=== PATIENT | male | born 1980 | race Hispanic/Latino ===

== ENCOUNTER 2024-06-30 06:50 | Inpatient (IN) | payer SELFPAY ==
[2024-06-30] MEDS ORDERED: ONDANSETRON 4 MG/2 ML VIAL ONE ×2 (07:38→09:45)
[2024-06-30] MEDS ORDERED: NA CHLORIDE 0.9% 1,000 ML ONE (07:38)
[2024-06-30] MEDS ORDERED: MORPHINE 4 MG/ML SYR ONE ×2 (07:38→09:36)
[2024-06-30 07:41] LABS: Absolute Lymphocytes (CBC) 1.3 K/uL (0.7-4.9); Absolute Monocytes 1.3 K/uL (0.1-1.3); Absolute Neutrophil 11.7 K/uL (1.8-8.0); Basophils % 0.2 % (0-1.3); Hematocrit 42.6 % (39.6-49.0); Hemoglobin 14.7 g/dL (13.6-17.9); Lymphocytes % 9.1 % (15.3-44.8); MCH 30.2 pg (27.0-35.0); MCHC 34.5 g/dL (32.0-36.0); MCV 87.6 fL (80-100); MPV 8.9 fL (7.6-11.3); Monocytes % 9.4 % (3.3-12.3); Neutrophils % 81.3 % (41.7-73.7); Platelets 176 thou/uL (152-406); RBC Red Blood Cell Count 4.86 M/uL (4.33-5.43); Red Cell Distribution Width 13.5 % (12.1-15.2)
[2024-06-30 08:00] LABS: Albumin 3.6 g/dL (3.4-5.0); Albumin/Globulin Ratio 0.9 (1.1-1.8); Anion Gap 7.6 mEq/L (5.0-15.0); Globulin 4.2 g/dL (2.3-3.5); Potassium 3.6 mEq/L (3.5-5.1); Protein, Total 7.8 g/dL (6.4-8.2)
--- NOTE | 2024-06-30 08:27 | RAD REPORT ---
EXAMINATION: CT ABDOMEN AND PELVIS WITH CONTRAST CLINICAL INDICATION: Abdominal pain TECHNIQUE: CT abdomen and pelvis was performed, after the administration of 100 cc Isovue-300.. Sagit naresh and coronal reconstructions were obtained. One or more of the following dose reduction techniques were used: Automated exposure control, adjustment of the mA and/or kV according to patien t size, and/or iterative reconstruction. Unless otherwise specified, incidental findings do not require dedicated imaging follow-up. [id number]. Oral contrast was not given which limits evaluation of b owel and appendix. COMPARISON: none FINDINGS: Mild fatty liver. Spleen, pancreas, adrenals and right kidney unremarkable. Small left renal calculi. No hydronephrosis. No evidence of diverticulitis.: The appendix is dilated and fluid-filled. It contains an air bubble. It extends medially and inferior ly from the cecum. Moderate stranding is present adjacent to the appendix with small amount of ill-defined fluid. IMPRESSION: Appendicitis
[2024-06-30] MEDS ORDERED: NA CHLORIDE 0.9% 100 ML ONE (08:54)
[2024-06-30] MEDS ORDERED: PIPERACIL/TAZO 3.375 GM VIAL IV ONE (08:55)
[2024-06-30] MEDS: PIPER TAZO 3.375 GM in NA CHLORIDE 0.9% 100 ML IV SCH ×2 (09:00→15:47)
--- NOTE | 2024-06-30 09:01 | ER ---
Nurse's Notes [facility] Name: Jayy Adorno Age: 43 yrs Sex: Male : 1980 Arrival Date: 06/30/2024 Time: 06:50 Bed 13 Private MD: Diagnosis: Acute appendicitis with localized peritonitis Presentation: 06/30 07:10 Chief complaint: Patient states: Constipation, abdominal pain, and nausea x4 day. Pt rs5 reports trying OTC laxatives but they haven't helped. Coronavirus screen: At this time, the client does not indicate any symptoms associated with coronavirus-19. Ebola Screen: No symptoms or risks identified at this time. Initial Sepsis Screen: Does the patient meet any 2 criteria? No. Patient's initial sepsis screen is negative. Does the patient have a suspected source of infection? No. Patient's initial sepsis screen is negative. Risk Assessment: Do you want to hurt yourself or someone else? Patient reports no desire to harm self or others. Onset of symptoms was June 26, 2024. 07:10 Method Of Arrival: Ambulatory rs5 07:10 Acuity: JENNA 3 rs5 Triage Assessment: 07:12 General: Appears in no apparent distress. uncomfortable, Behavior is calm, cooperative. rs5 Pain: Complains of pain in abdomen Pain currently is 8 out of 10 on a pain scale. Quality of pain is described as aching, Is continuous. GI: Reports constipation, nausea. Historical: - Allergies: 07:12 No Known Allergies; rs5 - PMHx: 07:12 Hypercholesterolemia; rs5 - PSHx: 07:12 None; rs5 - Immunization history:: Adult Immunizations up to date. - Infectious Disease History:: Denies. - Social history:: Smoking status: Patient denies any tobacco usage or history of. - Family history:: not pertinent. - Hospitalizations: : No recent hospitalization is reported. Screenin:02 [facility] ED Fall Risk Assessment (Adult) History of falling in the last 3 months, rs5 including since admission No falls in past 3 months (0 pts) Confusion or Disorientation No (0 pts) Intoxicated or Sedated No (0 pts) Impaired Gait No (0 pts) Mobility Assist Device Used No (0 pt) Altered Elimination No (0 pt) Score/Fall Risk Level 0 - 2 = Low Risk Oriented to surroundings, Maintained a safe environment. Abuse screen: Denies threats or abuse. Nutritional screening: No deficits noted. Tuberculosis screening: No symptoms or risk factors identified. Assessment: 07:13 General: Appears in no apparent distress. uncomfortable, Behavior is calm, cooperative. rs5 Pain: Complains of pain in abdomen Pain currently is 8 out of 10 on a pain scale. Quality of pain is described as aching, Is continuous. Neuro: Level of Consciousness is awake, alert, obeys commands, Oriented to person, place, time, situation. Cardiovascular: Patient's skin is warm and dry. Respiratory: Airway is patent Respiratory effort is even, unlabored, Respiratory pattern is regular, symmetrical. GI: Abdomen is round non-distended, Bowel sounds Abd is soft and non tender X 4 quads. Reports constipation, nausea. : No signs and/or symptoms were reported regarding the genitourinary system. EENT: No signs and/or symptoms were reported regarding the EENT system. Derm: Skin is intact, Skin is dry, Skin is normal, Skin temperature is warm. Musculoskeletal: Range of motion: intact in all extremities. 08:17 Reassessment: Patient and/or family updated on plan of care and expected duration. Pain rs5 level reassessed. Patient is alert, oriented x 3, equal unlabored respirations, skin warm/dry/pink. 09:20 Pain: Complains of pain in abdomen Pain currently is 9 out of 10 on a pain scale. rs5 Quality of pain is described as aching, Is continuous. 09:20 Reassessment: Patient and/or family updated on plan of care and expected duration. Pain rs5 level reassessed. Patient is alert, oriented x 3, equal unlabored respirations, skin warm/dry/pink. provider notified pt is experiencing pain . 10:10 Reassessment: Patient and/or family updated on plan of care and expected duration. Pain rs5 level reassessed. Patient is alert, oriented x 3, equal unlabored respirations, skin warm/dry/pink. Patient states feeling better. Vital Signs: 07:10 BP 130 / 90; Pulse 71; Resp 17; Pulse Ox 98% on R/A; rs5 08:01 BP 125 / 88; Pulse 74; Resp 17; Pulse Ox 99% on R/A; rs5 10:10 BP 127 / 84; Pulse 73; Resp 17; Pulse Ox 98% on R/A; rs5 ED Course: 06:56 Patient arrived in ED. gm2 07:01 Johnathan León MD is Attending Physician. rn 07:02 Patient has correct armband on for positive identification. Placed in gown. Bed in low rs5 position. Call light in reach. Side rails up X2. 07:02 No provider procedures requiring assistance completed. rs5 07:06 Arm band placed on Patient placed in an exam room, on a stretcher. ll1 07:10 Ariel Crooks, RN is Primary Nurse. rs5 07:12 Triage completed. rs5 07:38 Inserted saline lock: 20 gauge in right antecubital area, using aseptic technique. rs5 Blood collected. Flushed with 10 mL NS. 08:15 CT Abd/Pelvis - IV Contrast Only In Process Unspecified. EDMS 09:00 Saturnino Tovar MD is Hospitalizing Provider. rn 10:12 Patient admitted, IV remains in place. rs5 10:23 Provided Education on: need for admit. rs5 Administered Medications: 07:44 Drug: NS 0.9% IV 1000 ml IV at 1 bolus Per protocol; 1000 mL bolus Route: IV; Rate: 1 rs5 bolus; Site: right antecubital; 08:50 Follow up: Response: No adverse reaction; IV Status: Completed infusion; IV Intake: rs5 1000ml 07:44 Drug: Ondansetron IVP 4 mg IVP once; over 2 minutes Route: IVP; Site: right antecubital;rs5 08:00 Follow up: Response: No adverse reaction; Nausea is decreased rs5 07:44 Drug: morphine IVP or IV 4 mg IVP once over 4 mins Route: IVP; Infused Over: 4 mins; rs5 Site: right antecubital; 08:01 Follow up: Response: No adverse reaction; Pain is decreased rs5 09:06 Drug: Piperacillin-Tazobactam IVPB 3.375 grams IVPB once over 60 mins; (mix in NS 100 rs5 mL) Route: IVPB; Infused Over: 60 mins; Site: right antecubital; 09:22 Follow up: Response: No adverse reaction rs5 10:07 Follow up: Response: No adverse reaction; IV Status: Completed infusion rs5 09:35 Drug: morphine IVP or IV 4 mg IVP once over 4 mins Route: IVP; Infused Over: 4 mins; rs5 Site: right antecubital; 10:00 Follow up: Response: No adverse reaction; Pain is decreased rs5 Medication: 07:13 VIS not applicable for this client. rs5 Intake: 08:50 IV: 1000ml; Total: 1000ml. rs5 Outcome: 09:00 Decision to Hospitalize by Provider. rn 10:12 Admitted to OR accompanied by nurse, via stretcher, with chart, rs5 10:12 Condition: stable rs5 10:12 Instructed on the need for admit, Demonstrated understanding of instructions, 10:13 Patient left the ED. rs5 Signatures: Dispatcher [employer] EDMS Johnathan León MD MD rn Lewis, Lynsay, RN RN ll1 Ariel Crooks RN RN rs5 Debra Uriarte 2
--- NOTE | 2024-06-30 09:01 | EDPHYS ---
Physician Documentation [facility] Name: Jayy Adorno Age: 43 yrs Sex: Male : 1980 Arrival Date: 06/30/2024 Time: 06:50 Bed 13 Private MD: ED Physician Johnathan León HPI: 06/30 08:52 This 43 yrs old Male presents to ER via Ambulatory with complaints of rn Constipation, abd pain. 08:58 The patient presents with abdominal pain in the lower abdomen. Onset: The rn symptoms/episode began/occurred 3 day(s) ago. The symptoms do not radiate. Associated signs and symptoms: Pertinent positives: constipation, Pertinent negatives: fever, hematuria, nausea. The symptoms are described as sharp, stabbing. Modifying factors: The symptoms are alleviated by nothing, the symptoms are aggravated by touching the area. Severity of pain: At its worst the pain was moderate in the emergency department the pain is unchanged. The patient has not experienced similar symptoms in the past. Patient seen in clinic yesterday for 2 days of abdominal pain, told to get outpatient ultrasound, unable to get study. Returns today for worsening abdominal pain, lower abdomen associated with nausea and constipation. Taking laxatives and not helping.. Historical: - Allergies: 07:12 No Known Allergies; rs5 - PMHx: 07:12 Hypercholesterolemia; rs5 - PSHx: 07:12 None; rs5 - Immunization history:: Adult Immunizations up to date. - Infectious Disease History:: Denies. - Social history:: Smoking status: Patient denies any tobacco usage or history of. - Family history:: not pertinent. - Hospitalizations: : No recent hospitalization is reported. ROS: 08:58 Constitutional: Negative for fever, chills, and weight loss, Cardiovascular: Negative rn for chest pain, palpitations, and edema, Respiratory: Negative for shortness of breath, cough, wheezing, and pleuritic chest pain, Abdomen/GI: Positive for abdominal pain and nausea Back: Negative for injury and pain, : Negative for injury, bleeding, discharge, and swelling, MS/Extremity: Negative for injury and deformity, Neuro: Negative for headache, weakness, numbness, tingling, and seizure, Exam: 08:58 Constitutional: This is a well developed, well nourished patient who is awake, alert, rn appears uncomfortable Cardiovascular: Regular rate and rhythm. No pulse deficits. Respiratory: No increased work of breathing, no retractions or nasal flaring. Abdomen/GI: Soft, mild left lower quadrant/right lower quadrant/suprapubic tenderness with guarding MS/ Extremity: Pulses equal, no cyanosis. Neuro: Awake and alert, GCS 15 Vital Signs: 07:10 BP 130 / 90; Pulse 71; Resp 17; Pulse Ox 98% on R/A; rs5 08:01 BP 125 / 88; Pulse 74; Resp 17; Pulse Ox 99% on R/A; rs5 10:10 BP 127 / 84; Pulse 73; Resp 17; Pulse Ox 98% on R/A; rs5 MDM: 07:01 Patient medically screened. rn 08:58 Differential diagnosis: appendicitis, diverticulitis, non-specific abd pain, Peptic rn Ulcer Disease, Perf. Duodenal Ulcer, Perf. Gastric Ulcer, Ureterolithiasis. Data reviewed: vital signs, nurses notes, lab test result(s), radiologic studies, CT scan, and as a result, I will admit patient. Consideration of Admission/Observation Patient was admitted/placed on observation. Escalation of care including admission/observation considered. Counseling: I had a detailed discussion with the patient and/or guardian regarding the historical points, exam findings, and any diagnostic results supporting the discharge/admit diagnosis, lab results, radiology results, the need for further work-up and treatment in the hospital. 06/30 07:15 Order name: CBC with Diff; Complete Time: 08:46 rn 06/30 07:15 Order name: CMP; Complete Time: 08:46 rn 06/30 07:15 Order name: Lipase; Complete Time: 08:46 rn 06/30 07:15 Order name: CT Abd/Pelvis - IV Contrast Only; Complete Time: 08:46 rn 06/30 07:15 Order name: IV Saline Lock; Complete Time: 07:44 rn 06/30 07:15 Order name: Labs collected and sent; Complete Time: 07:44 rn 06/30 08:46 Order name: NPO; Complete Time: 08:46 rn Administered Medications: 07:44 Drug: NS 0.9% IV 1000 ml IV at 1 bolus Per protocol; 1000 mL bolus Route: IV; Rate: 1 rs5 bolus; Site: right antecubital; 08:50 Follow up: Response: No adverse reaction; IV Status: Completed infusion; IV Intake: rs5 1000ml 07:44 Drug: Ondansetron IVP 4 mg IVP once; over 2 minutes Route: IVP; Site: right antecubital;rs5 08:00 Follow up: Response: No adverse reaction; Nausea is decreased rs5 07:44 Drug: morphine IVP or IV 4 mg IVP once over 4 mins Route: IVP; Infused Over: 4 mins; rs5 Site: right antecubital; 08:01 Follow up: Response: No adverse reaction; Pain is decreased rs5 09:06 Drug: Piperacillin-Tazobactam IVPB 3.375 grams IVPB once over 60 mins; (mix in NS 100 rs5 mL) Route: IVPB; Infused Over: 60 mins; Site: right antecubital; 09:22 Follow up: Response: No adverse reaction rs5 10:07 Follow up: Response: No adverse reaction; IV Status: Completed infusion rs5 09:35 Drug: morphine IVP or IV 4 mg IVP once over 4 mins Route: IVP; Infused Over: 4 mins; rs5 Site: right antecubital; 10:00 Follow up: Response: No adverse reaction; Pain is decreased rs5 Disposition Summary: 06/30/24 09:00 Hospitalization Ordered Notes: Hospitalization Status: Inpatient Admission rn Provider: Saturnino Tovar rn Location: Telemetry/[facility] (Inpatient) rn Condition: Stable rn Problem: new rn Symptoms: have improved rn Bed/Room Type: Standard rn Room Assignment: rn Diagnosis - Acute appendicitis with localized peritonitis rn Forms: - Medication Reconciliation Form rn - SBAR form rn - Leadership Thank You Letter rn Signatures: Dispatcher [employer] Johnathan Carlos MD MD rn Sotelo, Ricky, RN RN rs5 Corrections: (The following items were deleted from the chart) 07:15 07:15 Abdomen Pelvis W Con+CT.RAD.BRZ ordered. ROSA LEE
[2024-06-30] MEDS ORDERED: MORPHINE 4 MG/ML SYR IV PRN (09:39)
[2024-06-30] MEDS ORDERED: ONDANSETRON 4 MG/2 ML VIAL IV PRN (09:39)
[2024-06-30] MEDS ORDERED: LIDOCAINE 2% MPF 5 ML VIAL ONE (09:45)
[2024-06-30] MEDS ORDERED: propofoL 200 MG/20 ML VIAL IV ONE (09:45)
[2024-06-30] MEDS ORDERED: FENTANYL CITR 100 MCG/2 ML ONE (09:45)
[2024-06-30] MEDS ORDERED: MIDAZOLAM HCL 2 MG/2 ML INJ ONE (09:45)
[2024-06-30] MEDS ORDERED: ROCURONIUM 50 MG/5 ML VIAL IV ONE (09:47)
[2024-06-30] MEDS: SUGAMMADEX SODIUM 200 MG/2 ML VIAL IV ONE (09:52)
[2024-06-30] MEDS: D5 0.45 NS 1,000 ML IV SCH (10:00)
[2024-06-30] MEDS: Ringers Lactate 1,000 ML IV ONE (10:05)
[2024-06-30] MEDS ORDERED: dexAMETHasone 10 MG/ML VIAL ONE (10:28)
--- NOTE | 2024-06-30 11:10 | P.BOP ---
Preoperative diagnosis: acute appendicitis Postoperative diagnosis: same Primary procedure: Laparoscopic appendectomy Specimen: lynnette Findings: inflammed appendix Anesthesia: General Complications: None Transferred to: Recovery Room Condition: Good
[2024-06-30] MEDS ORDERED: HYDROCODONE/APAP 5/325 MG TAB PO PRN (11:12)
--- NOTE | 2024-06-30 11:44 | HP ---
Date of Admission: 06/30/2024 Reason For Service: Acute appendicitis. History Of Present Illness: This is a case of a -orvn-rgm patient, comes to the ER complai sammi of 3 days of nausea, vomiting, abdominal pain. He denies any recent traveling out of the [place]. Denies any family member sick at home. Denies any previous surgeries or any previous sickness. When the patient came to the ER today, workup was done and they just called me, patient has appendici tis and a surgical evaluation was requested. Review of Systems: Denies any dysuria, hematuria, hematochezia, melena. Denies any recent traveling out of the country. Denies any family member sick at home. In addition, denies shortness of breath, chest pain. Allergies: NONE. Past Medical History: High cholesterol. Past Surgical History: None. Social History: He does smoke. He does not drink alcohol. Physical Examination: Vital Signs: Reviewed. General: The patient is awake and alert. Pupils are equal and reactive. Anicteric. Neck: Supple. Chest: Clear. Heart: S1, S2. Abdomen: Right lower quadrant tenderness with guarding. Rovsing sign positive and psoas signs posit mine. Rectal/Breast/Genitalia: Deferred. Extremities: Good capillary refill. Neuro: Cranial nerves 2-12 grossly normal limits. Laboratory Data: WBC count is 14.4, hemoglobin is 14.7. Potassium 3.6. Total bilirubin 1.0. CAT s can of the abdomen and pelvis interpreted by Dr. Lopes as acute appendicitis. Assessment: This is a 44-year-old patient with acute appendicitis. Laparoscopic, possible open appe ndectomy with benefits, alternatives, and risks including, but not limited to infection, bleeding, da mage to adjacent structures, anesthesia complication, abscess, bleeding, myocardial infarction, even . He also understands this may not relieve the symptoms. He might need more than one surgical intervention. He understand the importance of continuing antibiotics when it eventually goes on. Th is appendix is inflamed. It has been there for a few days and may have a chance of abscess in the fu ture, so we are going to make sure that he completes and compliant with medications. He was also adv ised to see his primary doctors for his cholesterol medications. HM/PARKERL Voice ID: [id number]
[2024-06-30 12:09] VITALS: BMI 33.9
--- NOTE | 2024-06-30 12:38 | DS ---
Diagnoses: Acute appendicitis, umbilical hernia. Procedure: Laparoscopic appendectomy, umbilical hernia repair. If he tolerates diet, he will be able to go home. We gave him instructions of taking his antibiotics . He will be called to his pharmacy. Follow up in my office in 1 week. Call for appointment at [phone]. Keep area dry for 48 hours, then may shower. Keep gloria intact, then replace the gauze wit h Band-Aid. GLADYS/JULIA Voice ID: [id number] Report ID: [id number]
--- NOTE | 2024-06-30 12:38 | OP ---
Date of Procedure: 06/30/2024 Surgeon: Saturnino Tovar MD Preoperative Diagnosis: Acute appendicitis. Postoperative Diagnoses: Acute appendicitis plus umbilical hernia. Procedure: Laparoscopic appendectomy and open repair of umbilical hernia. Anesthesia: General plus local. Complications: None. Indications: This is a case of a 43-year-old patient who came to the ER with the acute abdominal annel n, diagnosed with acute appendicitis. The benefits, alternatives, and risks of laparoscopic possible open appendectomy fully explained, which include, but not limited to, infection, bleeding, damage to adjacent structures, anesthesia complication, recurrence, abscess, DC, and even . He also unde rstands this may not relieve any symptoms. He might need more than one surgical intervention. He un derstood, signed a consent. Description Of Procedure: Patient was brought to the operating room, placed in supine position. Ane sthesia was done without complication. Abdominal area was prepped and draped in a sterile fashion. Local anesthesia was applied followed by sharp incision of the skin in the infraumbilical region. Im mediately, we noticed the patient to have hernia, so we have to separate the hernia sac away from umb ilical skin, removed the hernia sac, sent it for Path, extended the incision, put Vicryl #1 inside of the fascia and then Anupama trocar was carefully introduced. Pneumoperitoneum was obtained. Under d irect visualization, I put 2 more trocars, 5 mm each one of them in the suprapubic and left lower alley drant under direct visualization. This allowed me to visualize the area of the appendix. It looks i nflamed all the way into the base and the base seems to be spared. In order for us to get this appen harry out, we had to mobilize the cecum partially and take care of the mesoappendix and to do so, we ne eded the LigaSure. Once we had that mobilized, we were able to visualize the base of the appendix pr operly. The mesoappendix was transected with a LigaSure and the base of the appendix was transected with the Endo-IAM 45 mm nonvascular. No bleeding. No bowel leak. Appendix removed from abdominal c avity using the EndoCatch through the umbilical incision. Area was inspected once again after irriga tion and suction. No bleeding. At that moment, I proceeded to remove the trocars under direct visio n, deflated pneumoperitoneum, closed the fascia and the umbilical hernia with #1 Vicryl. Irrigated s ubcutaneous tissue, closed that with 3-0 chromic and the skin in a subcuticular fashion with 3-0 building maintenance supervisor viet and gloria. Sponge counts and instrument counts were correct. Patient tolerated the procedure well. Patient sent to Recovery in stable condition. GLADYS/JULIA Voice ID: [id number] Report ID: [id number]
[2024-06-30 17:02] VITALS: TEMP 98.1
[2024-06-30 22:32] VITALS: BP 130/90; O2SAT 98
== END 2024-06-30 18:14 | disposition home or self-care (01) | DRG 399 ==
LOC: ER 06:50 → ERHOLD 09:02 → 2ND 11:31
PROVIDERS: ADMIT Surgery; ATTEND Surgery
PROC: 0WQF0ZZ Repair Abdominal Wall, Open Approach (ICD-10-PCS; 2024-06-30)
PROC: 0DTJ4ZZ Resection of Appendix, Percutaneous Endoscopic Approach (ICD-10-PCS; principal; 2024-06-30 11:30)
DX: K35.30 Acute appendicitis with localized peritonitis, without perforation or gangrene (principal); K42.9 Umbilical hernia without obstruction or gangrene; E78.00 Pure hypercholesterolemia, unspecified
CPT/HCPCS: 36415; 74177; 80053; 83690; 85025; 88302; 88304; 96361; 96365; 96375; 99285; J1100; J2001; J2250; J2405; J2543; J2704; J3010; J7030; J7120; J7799; Q9967